=== PATIENT | male | born 1970 | race African-American/Black ===

== ENCOUNTER 2024-09-11 11:01 | Outpatient (REF) | payer MEDICAID, SELFPAY ==
[2024-09-11 11:54] LABS: Anion Gap 13 (12-20); Blood Urea Nitrogen 10 mg/dL (9-16); Calcium 9.7 mg/dL (8.4-10.2); Carbon Dioxide 27 mmol/L (22-29); Chloride 105 mmol/L (96-108); Estimated Glomerular Filt Rate > 60; Glucose Fasting 86 mg/dL (60-99); Potassium 4.2 mmol/L (3.3-5.1); Sodium 141 mmol/L (135-145)
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
[2024-09-11 12:28] LABS: Folate 6.5 ng/mL (> or = 4.0); Vitamin B12 599 pg/mL (200-900)
[2024-09-12 04:56] LABS: Lyme Abs Screen <0.90 index
== END 2024-09-11 11:02 | disposition home or self-care (01) ==
LOC: HO.LAB 11:01
PROVIDERS: PCP Internal Medicine; Visit Provider Psychiatry & Neurology Neurology
DX: G62.9 Polyneuropathy, unspecified (principal)
CPT/HCPCS: 36415; 80048; 82607; 82746; 86617; 86618